=== PATIENT | male | born 2000 | race Asian ===

== ENCOUNTER 2024-03-29 23:40 | Emergency (ER) | payer SELFPAY ==
[~2024-03-29] VITALS: Ht 167.6 cm; Wt 75.2 kg
[2024-03-29 23:54] VITALS: BP 143/66; TEMP 97.3
[2024-03-30 01:29] LABS: BASO % 0.2 % (0.0-2.0); EOS % 0.2 % (0.0-4.0); GRAN # 7.4 K/mm3 (1.4-6.5); GRAN % 81.1 % (42.2-75.2); HEMATOCRIT 43.8 % (42.0-52.0); HEMOGLOBIN 15.4 g/dl (13.5-18.0); LYMPH # 1.2 K/mm3 (1.2-3.4); LYMPH % 12.8 % (20.0-51.0); MEAN CELL VOLUME 85 fl (80.0-100.0); MEAN CORPUSCULAR HEMOGLOBIN 30 pg (27-31); MEAN CORPUSCULAR HGB CONC 35 g/dl (33.0-37.0); MEAN PLATELET VOLUME 11.8 fl (7.4-10.4); MONO # 0.5 K/mm3 (0.1-0.6); MONO % 5.5 % (1.7-9.3); PLATELET COUNT 160 K/mm3 (130-400); RED BLOOD COUNT 5.18 M/mm3 (4.20-5.60); REDCELL DISTRIBUTION WIDTH-CV 12.1 % (11.5-14.5)
[2024-03-30] MEDS ORDERED: diphenhydrAMINE 50 MG/ML 1 ML VIAL IV ONE (01:45)
[2024-03-30 01:46] LABS: ALANINE AMINOTRANSFERASE 49 U/L (0-55); ALBUMIN 4.2 g/dL (3.5-5.0); ALKALINE PHOSPHATASE 113 U/L (40-150); ANION GAP 9 mmol/L (7-16); AST,SGOT 30 U/L (5-34); BILIRUBIN,TOTAL 0.4 mg/dL (0.2-1.2); BLOOD UREA NITROGEN 11 mg/dL (9-21); CALCIUM 9.5 mg/dL (8.4-10.2); CHLORIDE 103 mEq/L (98-107); CREATININE, serum 1.02 mg/dL (0.72-1.25); GLUCOSE 130 mg/dL (70-99); POTASSIUM 3.9 mEq/L (3.5-4.5); SODIUM 137 mEq/L (136-145); TOTAL PROTEIN 7.1 g/dl (6.2-8.1)
[2024-03-30 01:54] LABS: TROPONIN-I < 0.010 ng/mL (0.00-0.033)
[2024-03-30 01:55] LABS: TRICYCLIC ANTIDEPRESS URINE NEGATIVE (NEGATIVE)
[2024-03-30 02:21] VITALS: PULSE 88
== END 2024-03-30 02:23 | disposition home or self-care (01) ==
LOC: COL.ER 23:40
PROVIDERS: Nurse Practitioner Primary Care
DX: F15.90 Other stimulant use, unspecified, uncomplicated (principal)
CPT/HCPCS: J1200